=== PATIENT | female | born 1955 | race Caucasian/White ===

== ENCOUNTER 2019-03-15 15:48 | Emergency (ER) | payer MEDICAID ==
[~2019-03-15] VITALS: Ht 154.9 cm; Wt 67.6 kg
[2019-03-15 16:01] VITALS: BP_SYST 119
--- NOTE | 2019-03-15 16:15 | NUR ---
Patient to ER bed ER bed 4 to gown for evaluation. Side rails up.
--- NOTE | 2019-03-15 16:16 | NUR ---
ER Dr. Escobedo at bedside examining patient.
--- NOTE | 2019-03-15 16:45 | NUR ---
Patient is going to CT then will be placed in bed 4 by hearing health technician.
[2019-03-15] MEDS ORDERED: NACL 0.9% 1,000 ML IV ONE (16:59)
[2019-03-15] MEDS ORDERED: MECLIZINE HCL 25 MG TABLET (ANITVERT) PO ONE (17:00)
[2019-03-15] MEDS ORDERED: KETOROLAC TROMETHAMINE 30 MG VIAL IVP ONE (17:15)
--- NOTE | 2019-03-15 17:30 | NUR ---
Patient presents to ER with C/O fall secondary to vertigo. Patient A&Ox4, ambultory to ER. Patient states pain 10/10, dizzines, denies N/V/D. Patient states she fell due to Dizzines. Patient C/O headache, neck pain at surgical site for cervical fusion. Health Hx include Galbladder Sx, Knee SX, and Cervicle fusion.
[2019-03-15 17:57] LABS: BASOPHILS % (AUTO) 0.5 % (0.0-2.0); EOSINOPHILS # (AUTO) 0.1 K/uL (0.0-0.4); EOSINOPHILS % (AUTO) 1.7 % (0.0-4.0); HEMATOCRIT 43.6 % (36-48); HEMOGLOBIN 14.2 g/dL (12.0-16.0); LYMPHOCYTES # (AUTO) 2.9 K/uL (1.0-5.5); LYMPHOCYTES % (AUTO) 39.4 % (20.5-51.5); MEAN CORPUSCULAR HEMOGLOBIN 28 pg (27-31); MEAN CORPUSCULAR HGB CONC 32 % (32-36); MEAN CORPUSCULAR VOLUME 86 fL (79.0-98.0); MONOCYTES # (AUTO) 0.4 K/uL (0.0-1.0); MONOCYTES % (AUTO) 4.9 % (1.7-9.3); NEUTROPHILS # (AUTO) 3.9 K/uL (1.8-7.7); NEUTROPHILS % (AUTO) 53.5 % (40.0-70.0); PLATELET COUNT (AUTO) 256 K/uL (130-430); RED BLOOD CELL COUNT(AUTO) 5.07 MIL/uL (4.2-6.2); RED CELL DISTRIBUTION WIDTH 15.8 % (9.0-15.0); WHITE BLOOD COUNT (AUTO) 7.2 K/uL (4.8-10.8)
[2019-03-15 18:02] LABS: ANION GAP 14 (5-15); CALCIUM 8.8 mg/dL (8.4-11.0); CHLORIDE 109 mmol/L (98-107); CREATININE 0.86 mg/dL (0.55-1.30); GLUCOSE 127 mg/dL (70-99); POTASSIUM 3.4 mmol/L (3.5-5.1); SODIUM SERUM 144 mmol/L (136-145); UREA NITROGEN, BLOOD 13 mg/dL (8-21)
[2019-03-15 18:03] LABS: GFR AFRICAN AMERICAN 86 mL/min (>90)
[2019-03-15 18:10] LABS: ALANINE AMINOTRANSFERASE 28 U/L (12-78); ALBUMIN 3.8 g/dL (3.4-4.8); ASPARTATE AMINOTRANSFERASE 33 U/L (10-37); TOTAL BILIRUBIN 0.7 mg/dL (0.0-1.0)
--- NOTE | 2019-03-15 18:43 | NUR ---
Patient given written and verbal discharge instructions and verbalizes understanding. ER MD discussed with patient the results and treatment provided. Patient in stable condition. ID arm band removed. IV catheter removed intact and dressing applied, no active bleeding. Rx of Antivert given. Patient educated on pain management and to follow up with PMD. Pain Scale 6/10, states she is ok to home. Opportunity for questions provided and answered. Medication side effect fact sheet provided.
[2019-03-15 18:45] VITALS: BP_SYST 141
== END 2019-03-15 18:45 | disposition home or self-care (01) ==
LOC: SED 15:48
DX: S09.90XA Unspecified injury of head, initial encounter (principal); R42 Dizziness and giddiness; M54.2 Cervicalgia; Z88.0 Allergy status to penicillin; W19.XXXA Unspecified fall, initial encounter; Y93.89 Activity, other specified; Y92.89 Other specified places as the place of occurrence of the external cause; Y99.8 Other external cause status
CPT/HCPCS: 36415; 70450; 72125; 80053; 84484; 85025; 96361; 96374; 99284; J1885; J8597

== ENCOUNTER 2022-12-02 03:44 | Emergency (ER) | payer OTHER, MEDICAID ==
[~2022-12-02] VITALS: Ht 154.9 cm; Wt 63.0 kg
[2022-12-02 03:47] VITALS: BP_SYST 144
== END 2022-12-02 04:33 | disposition home or self-care (01) ==
LOC: SED 03:44
DX: K14.0 Glossitis (principal); R20.2 Paresthesia of skin; Z88.0 Allergy status to penicillin; Z79.899 Other long term (current) drug therapy
CPT/HCPCS: 99281

== ENCOUNTER 2022-12-27 21:47 | Emergency (ER) | payer OTHER, MEDICAID ==
[~2022-12-27] VITALS: Ht 154.9 cm; Wt 68.0 kg
[2022-12-27 22:10] VITALS: BP_SYST 150
[2022-12-27] MEDS ORDERED: ACETAMINOPHEN 500 MG TABLET PO ONE (22:30)
[2022-12-27] MEDS ORDERED: metroNIDAZOLE 500 MG TABLET PO ONE (22:30)
[2022-12-27] MEDS ORDERED: IBUPROFEN 600 MG TABLET PO ONE (22:30)
[2022-12-27] MEDS ORDERED: IBUP-1969 PO (22:39)
[2022-12-27] MEDS ORDERED: CEFU250T85 PO (22:39)
[2022-12-27] MEDS ORDERED: METR-154 PO (22:39)
[2022-12-27 23:22] VITALS: BP_SYST 134
== END 2022-12-27 23:22 | disposition home or self-care (01) ==
LOC: SED 21:47
DX: S30.810A Abrasion of lower back and pelvis, initial encounter (principal); S60.511A Abrasion of right hand, initial encounter; S70.311A Abrasion, right thigh, initial encounter; Z88.0 Allergy status to penicillin; Z79.899 Other long term (current) drug therapy; W55.03XA Scratched by cat, initial encounter; Y93.89 Activity, other specified; Y92.89 Other specified places as the place of occurrence of the external cause; Y99.8 Other external cause status
CPT/HCPCS: 99284